=== PATIENT | female | born 1990 | race Caucasian/White ===

== ENCOUNTER → 2017-11-18 | Outpatient (CLI) | payer BC ==
[~2017-11-18] MED LIST: AA/A14DR7 OT; CIP500 PO; LOR5 PO; MED150I IM; PREN-127 PO
[2017-11-18 16:57] LABS: PLATELET COUNT, AUTOMATED 256 K/uL (150-450)
== END ==
LOC: LAB 12:43
PROVIDERS: ATTEND Student in an Organized Health Care Education/Training Program
DX: Z34.90 Encounter for supervision of normal pregnancy, unspecified, unspecified trimester (principal)
CPT/HCPCS: 36415; 81001; 85025; 86592; 86703; 86762; 86850; 86900; 86901; 87088; 87340

== ENCOUNTER → 2017-11-18 | Outpatient (CLI) | payer BC | LOC: LAB 15:30 | PROVIDERS: ATTEND Student in an Organized Health Care Education/Training Program | DX: Z02.9 Encounter for administrative examinations, unspecified (principal) ==

== ENCOUNTER → 2018-01-27 | Outpatient (CLI) | payer BC ==
[~2018-01-27] MED LIST changes: +FLU60VIA41 IM; +METR-1 PO
== END ==
LOC: LAB 16:03
PROVIDERS: ATTEND Student in an Organized Health Care Education/Training Program
DX: R35.0 Frequency of micturition (principal)
CPT/HCPCS: 87088

== ENCOUNTER → 2018-02-10 | Outpatient (CLI) | payer BC ==
[~2018-02-10] MED LIST changes: +FLUC150T40 PO; +METR500T54 PO
== END ==
LOC: LAB 08:37
PROVIDERS: ATTEND Student in an Organized Health Care Education/Training Program
DX: O26.899 Other specified pregnancy related conditions, unspecified trimester (principal)
CPT/HCPCS: 87210

== ENCOUNTER → 2018-02-24 | Outpatient (CLI) | payer BC ==
--- NOTE | 2018-02-24 17:28 | RADIOLOGY IMAGING REPORT ---
FACILITY: [facility] - [place] PATIENT NAME: Marietta Tipton : 1990 MR: [id number] V: [id number] EXAM DATE: ORDERING PHYSICIAN: BRYON CHAVEZ TECHNOLOGIST: Location: [facility] [place] Patient: Marietta Tipton : 1990 Visit/Account:[id number] Date of Sevice: 02/24/2018 [facility] OB ANATOMICAL SURVEY HISTORY: Anatomic survey COMPARISON: None. TECHNIQUE: Transabdominal imaging was performed for assessment of the fetus and maternal pelvic s tructures. Transvaginal imaging was not performed. FINDINGS: Intrauterine gestations: One. presentation: Breech presentation on final images. heart rate: 143 bpm. Amniotic fluid volume: Normal; RYLEY 18.02 cm; MVP 5.71 cm. Placenta: Posterior to the right. The distance between the distal placental tip and the cervical os is 3.1 cm. Uterus: Gravid, otherwise grossly unremarkable where visualized. Maternal adnexa/ovaries: Grossly unremarkable, ovaries not visualized. Cervix: Grossly long and closed. Gestational Parameters: BPD: 4.86 cm, 86th percentile HC: 18.06 cm, 77th percentile AC: 15.98 cm, 85th percentile FL: 3.17 cm, 48th percentile Average ultrasound age (AUA): 20 weeks/ four days Estimated age based on LMP: 19 weeks/ five days Estimated weight (EFW): 360 grams +/- 53 grams, 88th percentile Anatomic Survey: Intracranial structures, 4-chamber heart, stomach, kidneys, urinary bladder, spine, 3-vessel cord and cord insertion are unremarkable. Two upper and two lower extremities visualized. IMPRESSION: Single viable fetus in breech presentation with an estimated gestational age by measurements of 20 we eks and four days. Gestational age by last menstrual period is 19 weeks and five days. Estimated fe svetlana weight 360 g Report Dictated By: Zenia Sy MD at 02/24/2018 5:19 PM Report E-Signed By: Zenia Sy MD at 02/24/2018 5:25 PM WSN:[email or web address]
== END ==
LOC: RAD 10:01
PROVIDERS: ATTEND Student in an Organized Health Care Education/Training Program
DX: O32.1XX0 Maternal care for breech presentation, not applicable or unspecified (principal); Z3A.20 20 weeks gestation of pregnancy

== ENCOUNTER 2018-04-08 16:09 | Outpatient (CLI) | payer BC ==
[~2018-04-08] VITALS: Ht 170.2 cm; Wt 60.8 kg
[~2018-04-08 16:09] MED LIST changes: +METR500T15 PO; -METR500T54 PO
[2018-04-08 16:15] VITALS: BP 122/67; Ht 170.2 cm; Wt 60.8 kg
== END 2018-04-08 17:25 | disposition home or self-care (01) ==
LOC: OB 16:09 → L&D 16:09 → OB 16:09 → UNDOADMIN 16:09 → L&D 17:25 → UNDODISIN 17:25 → EDSTATUS 04-09 13:20
PROVIDERS: ATTEND Obstetrics & Gynecology
DX: O36.8121 Decreased fetal movements, second trimester, fetus 1 (principal); Z3A.25 25 weeks gestation of pregnancy
CPT/HCPCS: 59025; 99213

== ENCOUNTER → 2018-04-21 | Outpatient (CLI) | payer BC ==
[2018-04-08 16:15] VITALS: BMI 21.0
[~2018-04-21] MED LIST changes: +DIPH0.5D12 IM
[2018-04-21 16:57] LABS: PLATELET COUNT, AUTOMATED 229 K/uL (150-450)
== END ==
LOC: LAB 15:51
PROVIDERS: ATTEND Student in an Organized Health Care Education/Training Program
DX: Z34.92 Encounter for supervision of normal pregnancy, unspecified, second trimester (principal)
CPT/HCPCS: 36415; 82950; 85025

== ENCOUNTER → 2018-04-21 | Outpatient (CLI) | payer BC ==
[2018-04-08 16:15] VITALS: BMI 21.0
== END ==
LOC: LAB 15:44
PROVIDERS: ATTEND Student in an Organized Health Care Education/Training Program
DX: Z02.9 Encounter for administrative examinations, unspecified (principal)

== ENCOUNTER → 2018-04-24 | Outpatient (CLI) | payer BC ==
[2018-04-08 16:15] VITALS: BMI 21.0
== END ==
LOC: LAB 07:39
PROVIDERS: ATTEND Student in an Organized Health Care Education/Training Program
DX: O99.810 Abnormal glucose complicating pregnancy (principal)
CPT/HCPCS: 36415; 82951; 82952

== ENCOUNTER → 2018-05-01 | Outpatient (CLI) | payer BC ==
[2018-04-08 16:15] VITALS: BMI 21.0
== END ==
LOC: LAB 16:03
PROVIDERS: ATTEND Student in an Organized Health Care Education/Training Program
DX: N89.8 Other specified noninflammatory disorders of vagina (principal)
CPT/HCPCS: 87210

== ENCOUNTER → 2018-06-26 | Outpatient (CLI) | payer BC ==
[2018-04-08 16:15] VITALS: BMI 21.0
[~2018-06-26] MED LIST changes: +AZIT-17 PO
== END ==
LOC: LAB 15:26
PROVIDERS: ATTEND Student in an Organized Health Care Education/Training Program
DX: Z36.85 Encounter for antenatal screening for Streptococcus B (principal)
CPT/HCPCS: 87081

== ENCOUNTER 2018-07-14 18:00 | Inpatient (IN) | payer BC ==
[~2018-07-14] VITALS: Ht 170.2 cm; Wt 67.1 kg
[2018-07-14 18:07] VITALS: BP 126/67; Ht 170.2 cm; Wt 67.1 kg
[2018-07-14] MEDS ORDERED: OXYTOCIN 30 UNIT/D5LR 500 ML 500 ML IV PRN (18:14)
[2018-07-14] MEDS ORDERED: FAMOTIDINE(*) 20MG/50ML PREMIX 50 ML IVPB PRN (18:14)
[2018-07-14] MEDS ORDERED: ceFAZolin(*) 2GM/D5W 50ML 50 ML IVPB PRN (18:14)
[2018-07-14] MEDS ORDERED: LIDOCAINE 1% LOCAL 300 MG/30ML INJ PRN (18:15)
[2018-07-14] MEDS ORDERED: fentaNYL CITR 100 MCG/2 ML AMP IVP PRN (18:15)
[2018-07-14] MEDS ORDERED: METOCLOPRAMIDE 10 MG/2 ML SDV IVP PRN (18:15)
[2018-07-14] MEDS ORDERED: LIDOCAINE/SOD BICARB 8.4% SYR SC PRN (18:15)
[2018-07-14] MEDS ORDERED: BUPIVACAINE 0.25% MPF INJ EPI PRN (18:20)
[2018-07-14] MEDS ORDERED: FENTANYL/ROPIVACAINE 100 ML BAG EPI PRN (18:20)
[2018-07-14] MEDS ORDERED: fentaNYL CITR 100 MCG/2 ML AMP IT PRN (18:20)
[2018-07-14] MEDS ORDERED: LIDOCAINE/PF 2% 200MG/10ML AMP 200 MG/10 ML AMPUL EPI PRN (18:20)
[2018-07-14] MEDS ORDERED: LIDO/EPI 2% MPF 1:200,000 20ML EPI PRN (18:20)
[2018-07-14] MEDS ORDERED: BUPIVACAINE 0.5% INJ 30ML VIAL EPI PRN (18:20)
[2018-07-14 18:37] LABS: PLATELET COUNT, AUTOMATED 221 K/uL (150-450)
--- NOTE | 2018-07-14 18:49 | History & Physical ---
History of Present Illness Age of Patient: 27 : 1 Para or TPAL: 0 EDC per LMP: Jul 16, 2018 Estimated Gestational Age: 39.5 Chief Complaint Painful contractions. History of Present Illness Pt is a 27 y/o @ 39-5/7 wga who presents to L&D for a chief complaint of painful contractions. Pt was seen this morning for a routine OB appt and was 2 cm. Represented with a complaint of contractions and was 4 cm. Contractions started this morning after her first cervical exam. Denies any loss of amniotic fluid. No vaginal bleeding. Good movement. Desires no epidural at this time. History Patient's Blood Type: B Positive Rubella Status: Immune Group B Strep Screen: Negative Obstetrical History: Past Medical History: Non contributory Allergies: Coded Allergies: No Known Drug Allergies (Unverified , 11/18/17) Social History: Denies X 3. 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 =Lexa Family History: FH: diabetes mellitus Grandfather FH: hypertension Grandfather Med Rec Home Meds Reported Medications Vits W-Ca,Fe,Fa(<1MG) ( VITAMINS) Unknown Strength Tablet, PO DAILY, TAB 11/18/17 Review of Systems All Systems Reviewed/Normal: Yes, Except as Noted Constitutional: No Fever, No Weight Loss, No Weight Gain, No Chills, No Night Sweats, No Other Neurological: No Syncope, No Confusion, No Weakness, No Dizziness, No Slurred Speech, No Other Eyes: No Vision Change, No Loss of Vision, No Photophobia, No Other ENT: No Hearing Loss, No Sinus Congestion, No Sore Throat, No Ear Ache, No Tin nitus, No Other Cardiovascular: No Chest Pain, No Palpitations, No Orthostatic Hypotension, No Other Respiratory: No Shortness of Breath, No Cough, No Wheezing, No Other Gastrointestinal: No Nausea, No Vomiting, No Diarrhea, No Dysphagia, No Constipation, No Early Satiety, No Hematemesis, No Hematochezia, No Melena, No Abdominal Pain, No Other Genitourinary: No Dysuria, No Hematuria, No Urinary Incontinence, No Other Musculoskeletal: No Pain, No Sprain, No Strain, No Impaired Mobility, No Other Psychiatric: No Depression, No Anxiety, No Other Exam General Exam General Apperance: Alert/Awake/No Acute Distress Neuro: No Gross deficits Eyes: Normal Extraocular Movement & Vison, PERRLA Cardiovascular: Regular Rate and Rhythm Respiratory: No Respiratory Distress, Clear to Auscultation Abdomen: Gravid - Non-Tender Psychological: Alert & Oriented X3, Appropriate Mood & Affect Cervical Dialation: 7 Cervical Consistency: Soft Cervical Position: Anterior Station: -2 Presentation: Vertex Uterine Contractions(Q min): 3 Uterine Contraction Strength: Moderate UC Resting Tone: Soft Fetus Feeling Movement?: Yes Estimated Weight(grams): 3608 (By sono this AM) Heart Tones: 130 Heart Tone Variabilty: Moderate FHT Accelerations: 15X15 FHT Decelerations: None FHT Category: I Medical Decision Making Pre-Admit Course Medical Record Review: Yes VTE Prophylasis: Adult Deep Vein Thrombosis/Pulmonary: No Assessment and Plan KNUCKLER Assessment: Stable KNUCKLER Plan: Routine Labor Care Problems: (1) Active labor at term Assessment & Plan: Admit to L&D. Plan for . Pt declines amniotomy at this time. Desires no epidural if possible. (2) 39 weeks gestation of SCOTTBRYON BOSE Jul 14, 2018 18:49
[2018-07-14] MEDS: LR(*) 1000 ML BAG 1,000 ML IV SCH (19:30)
[2018-07-14] MEDS ORDERED: ONDANSETRON 4 MG/2 ML VIAL IVP PRN (19:45)
--- NOTE | 2018-07-14 22:01 | Labor Progress Note ---
Labor Subjective Progress Notes Subjective Reports large gush of fluid and increased pressure. Still having good movement. Feeling Movement?: Yes Vaginal Discharge/Fluid: Clear Fluid Labor Pain: Moderate Neurological: No Headache, No Other Eyes: No Visual Disturbances Labor Objective Vital Signs Vital Signs Date Time Temp Pulse Resp B/P (MAP) Pulse Ox O2 Delivery O2 Flow Rate FiO2 07/14/18 18:07 97.9 84 24 126/67 (86) 99 Room Air Vaginal Discharge/Fluid?: Clear Fluid Cervical Dialation: 9 Cervical Effacement (%): 100 Cervical Consistency: Soft Cervical Position: Anterior Station: +1 Presentation: Vertex Uterine Contractions(Q min): 5 Uterine Contraction Strength: Moderate Fetus Heart Tones: 140 Heart Tone Variabilty: Moderate FHT Accelerations: 15X15 FHT Decelerations: Variable FHT Category: II Other Result Diagram: 07/14/18 1821 Assessment and Plan ELEMENTARY PRINCIPAL Assessment: Stable ELEMENTARY PRINCIPAL Plan: Routine Labor Care Problems: (1) Active labor at term Assessment & Plan: Continue to monitor patient symptoms. Expect her to be complete and pushing in the next 1-2 hours. (2) 39 weeks gestation of SCOTTBRYON BOSE Jul 14, 2018 22:01
--- NOTE | 2018-07-15 02:12 | OB Delivery Note ---
Delivery Note Vaginal Delivery Type: Spont. Vaginal Delivery Delivery Date: Jul 15, 2018 Delivery Time: 01:21 Estimated Gestational Age(wks): 39.6 Length of Labor Stage I (hrs): 14 Length of Labor Stage II (hrs): 2 Labor Stage III (minutes): 4 Delivery Anesthesia: Local (repair only 20 cc 1%lidocaine) Sex: Male Weight (gms): 3215 (7#1oz) [place] Apgars: 1 Minute (8), 5 Minute (8) Repair Needed: 2nd Degree Estimated Blood Loss: 500 [employer] Driver in Attendence: BRYON Moore DO Jul 15, 2018 02:12
[2018-07-15] MEDS ORDERED: INFLUENZA VIRUS VAC 0.5ML SYR IM ONLY ONE (02:15)
[2018-07-15] MEDS ORDERED: LANOLIN OINT 7 GM TUBE TP PRN (02:15)
[2018-07-15] MEDS ORDERED: MEASLES,MUMP,RUBELLA VAC 0.5ML SC ONE (02:15)
[2018-07-15] MEDS ORDERED: HYDROCORTISONE 2.5% CR 30GM TB PR PRN (02:15)
[2018-07-15] MEDS ORDERED: BENZOCAINE 20% 60 ML BTL TP PRN (02:15)
[2018-07-15] MEDS ORDERED: GLYCERIN/WITCH HAZEL LEAF 1 PK TOP PRN (02:15)
[2018-07-15] MEDS ORDERED: APAP/HYDROCODONE 325/5 TAB PO PRN (02:15)
[2018-07-15] MEDS ORDERED: DIPHTH/TETANUS/ACEL. PERTUSSIS IM ONE (02:15)
[2018-07-15] MEDS ORDERED: MAGNESIUM HYDROXIDE* 30ML UDCP PO PRN (02:15)
[2018-07-15] MEDS: LR(*) 1000 ML BAG 1,000 ML IV SCH ×2 (04:14→14:14)
--- NOTE | 2018-07-15 05:48 | DELIVERY NOTE ---
DELIVERY DATE: July 15, 2018 SURGEON: Kyree Bhatt DO ANESTHESIA: 20 mL of 1% lidocaine for repair only. PREOPERATIVE DIAGNOSES 1. A 27-year-old 1, para 0, at 39-6/7 weeks' gestation. 2. Labor. POSTOPERATIVE DIAGNOSES 1. A 27-year-old 1, para 0, at 39-6/7 weeks' gestation. 2. Labor. 3. Delivered. PROCEDURE Spontaneous vaginal delivery with repair of second-degree midline laceration. FINDINGS Live-born male at 0121 of 07/15/2018 with Apgars of 8 and 8, weighing 7 pounds 1 ounce, 3215 g. Three-vessel cord. Intact placenta over a second- degree midline laceration. ESTIMATED BLOOD LOSS 500 mL. PATHOLOGY None. COMPLICATIONS None known. CONDITION Stable x2. Mother and infant to remain in the LDRP. COUNTS Correct for all needles, laps, sponges, and instruments. LABOR SUMMARY Patient is a 27-year-old 1, para 0, who presented to clinic at 39-5/7 weeks' gestation. She underwent cervical exam and was noted to be 2 cm, desired membrane stripping. She went home and reported contractions started shortly thereafter. Contractions increased in frequency and intensity. She was reevaluated approximately 3:30 and was noted to be 4-5 cm. She desired to return home and labor some more. She re-presented to Labor and Delivery at 6:30 and was noted to be 7 cm. Patient denied any loss of amniotic fluid. She did progress spontaneously to complete and did have spontaneous rupture of membranes and clear amniotic fluid. Patient was noted to be complete, and after approximately an hour and a half of pushing, the delivery team was called and assembled. DELIVERY SUMMARY Patient was placed in dorsal lithotomy position. She was prepped and draped in the usual sterile manner. Upon maternal pushing, the 's head delivered in a controlled manner, followed by the anterior shoulder with gentle downward motion, the posterior shoulder with gentle upward motion. The remainder of the infant's body delivered spontaneously. Mouth and nose were bulb-suctioned. The cord was clamped x2 and cut by the infant's father. The infant, secondary to some secondary apnea, was taken to the warmer to be vigorously cleaned and dried and attended to by the nursing staff. Next, a cord blood gas was obtained. The placenta delivered spontaneously with gentle cord traction. Oxytocin was infused to help with uterine tone. The uterus was massaged and deemed firm. Next, upon inspection of the perineum, vagina, cervix, and labia, it was noted that there was a second-degree midline laceration. This was repaired in the usual manner with a 3-0 Vicryl. Once the laceration was repaired, it was inspected and noted to be hemostatic. At this point, the patient was cleaned, the labor bed was reassembled, and the patient was allowed to irizarry with her baby at this time. ILYA
[2018-07-15 07:45] VITALS: BP 113/56
[2018-07-15] MEDS: DOCUSATE CALCIUM 240 MG CAP PO SCH ×2 (08:23→21:02)
[2018-07-15] MEDS ORDERED: IBUPROFEN 800 MG TAB PO SCH (09:00)
[2018-07-15] MEDS: ACETAMINOPHEN 325 MG TAB PO PRN ×3 (09:54→21:01)
[2018-07-15 10:30] VITALS: BP 112/56
[2018-07-15] MEDS: IBUPROFEN 800 MG TAB PO SCH ×2 (10:58→18:30)
--- NOTE | 2018-07-15 12:13 | OB/GYN Progress Note ---
OB Subjective Progress Notes Subjective Doing good this morning. Pain controlled with PO pain medications. Ambulatory in room only. with minimal difficulty. Tolerating regular diet. Bleeding appropriate. GI: NEG Nausea, NEG Vomiting, NEG Flatus, NEG Bowel Movement : Voiding Well, Vaginal Bleeding Pain: Mild, Comfortable, Tolerating PO Pain Meds Neurological: No Headache, No Other Eyes: No Visual Disturbances OB Objective Physical Exam Vital Signs Date Time Temp Pulse Resp B/P (MAP) Pulse Ox O2 Delivery O2 Flow Rate FiO2 07/15/18 10:30 99.4 74 16 112/56 (74) 92 Room Air Intake and Output 07/15/18 07:00 Intake Total 1500 ml Output Total 200 ml Balance 1300 ml IV Total 1500 ml Output Urine Total 200 ml # Voids 1 General Appearance: Alert/Awake/No Acute Distress Neurological: No Gross deficits Eyes: Normal Extraocular Movement & Vison, PERRLA Cardiovascular: Normal Rhythm & Peripheral Pulses Respiratory: No Respiratory Distress, Clear to Auscultation Abdomen: Fundus Firm : Normal Musculoskeletal: No Weakness/Pain Extremities: No Cyanosis,Clubbing or Edema Integumentary: Skin Intact without Lesions or Rash Psychological: Alert & Oriented X3, Appropriate Mood & Affect Result Diagram: 07/14/18 1821 Assessment and Plan BRIAR CUTTER Assessment: Stable BRIAR CUTTER Plan: Routine Post- Care Problems: (1) Active labor at term Status: Resolved Assessment & Plan: Patient is day #0 from a spontaneous vaginal delivery with second-degree midline laceration repair. Patient reports pain is controlled with by mouth pain medications which does include hydrocodone when necessary. Reports bleeding is minimal at this point. Still having some difficulty with breast-feeding. Ambulatory and room only. Will monitor patient until Saturday and possibly depending on patient's symptoms. (2) 39 weeks gestation of Status: Resolved BRYON CHAVEZ DO Jul 15, 2018 12:13
[2018-07-15 16:15] VITALS: BP 95/53
[2018-07-15 20:30] VITALS: BP 111/57
[2018-07-16] MEDS: LR(*) 1000 ML BAG 1,000 ML IV SCH (00:14)
[2018-07-16 02:20] VITALS: BP 104/65
[2018-07-16] MEDS: IBUPROFEN 800 MG TAB PO SCH (02:25)
[2018-07-16 07:20] VITALS: BP 113/66
[2018-07-16] MEDS: DOCUSATE CALCIUM 240 MG CAP PO SCH (08:51)
[2018-07-16] MEDS ORDERED: LOR5/325 PO (09:20)
[2018-07-16] MEDS ORDERED: IBUP800T37 PO (09:20)
--- NOTE | 2018-07-16 14:20 | OB/GYN Discharge Summary ---
Discharge Summary Reason for Hosp/Final Diag: (1) Active labor at term Status: Resolved Hospital Course & Plan: Patient presented in active labor she 1.5 hours. Patient delivered a liveborn male infant and had a second-degree laceration that was repaired accordingly. Patient made the hospital for 2 days and was discharged home day 2 after meeting ambulatory goals. (2) 39 weeks gestation of Status: Resolved Lates Vital Signs Vital Signs Date Time Temp Pulse Resp B/P (MAP) Pulse Ox O2 Delivery O2 Flow Rate FiO2 07/16/18 07:20 98.6 70 18 113/66 (82) Room Air 07/15/18 16:15 95 Weight (Pounds): 148 Result Diagram: 07/16/18618 Condition: Improved Discharge: Home Home Meds Active Scripts Ibuprofen (IBUPROFEN) 800 Mg Tablet, 800 MG PO Q8H@0300,1100,1900, #20 TAB 0 Ref ills Prov:BRYON CHAVEZ DO 07/16/18 Hydrocodone Bit/Acetaminophen (HYDROCODON-ACETAMINOPHEN 5-325) 1 Each Tablet, 1- 2 EACH PO Q6H PRN for PAIN, #20 TAB 0 Refills Max 8/day Prov:BRYON CHAVEZ DO 07/16/18 Reported Medications Vits W-Ca,Fe,Fa(<1MG) ( VITAMINS) Unknown Strength Tablet, PO DAILY, TAB 11/18/17 Follow up with: [facility] [phone], Dr. Chavez [phone] Follow up in: 6 wks PP or PO, 2 wks PO Discharge Diet: As Tolerates Discharge Activity: As Tolerates, Pelvic Rest BRYON CHAVEZ DO Jul 16, 2018 14:20
--- NOTE | 2018-07-16 14:23 | OB/GYN Progress Note ---
OB Subjective Progress Notes Subjective day #2. Denies any complaints. Pain controlled with by mouth pain medications. Bleeding appropriate. No issues with breast-feeding. Tolerating regular diet and ambulatory and room and all. GI: NEG Nausea, NEG Vomiting, NEG Flatus, NEG Bowel Movement : Voiding Well, Vaginal Bleeding, Moderate Pain: Mild Neurological: Headache Eyes: No Visual Disturbances OB Objective Physical Exam Vital Signs Date Time Temp Pulse Resp B/P (MAP) Pulse Ox O2 Delivery O2 Flow Rate FiO2 07/16/18 07:20 98.6 70 18 113/66 (82) Room Air 07/15/18 16:15 95 Intake and Output 07/16/18 07:00 Intake Total 240 ml Output Total 1300 ml Balance -1060 ml Intake Oral 240 ml Output Urine Total 1300 ml # Voids 4 General Appearance: Alert/Awake/No Acute Distress Neurological: No Gross deficits Eyes: Normal Extraocular Movement & Vison, PERRLA Cardiovascular: Normal Rhythm & Peripheral Pulses Respiratory: No Respiratory Distress, Clear to Auscultation Abdomen: Fundus Firm : Normal Musculoskeletal: No Weakness/Pain Extremities: No Cyanosis,Clubbing or Edema Integumentary: Skin Intact without Lesions or Rash Psychological: Alert & Oriented X3, Appropriate Mood & Affect Result Diagram: 07/16/18 0619 Assessment and Plan COLOR STRIPPER Assessment: Stable COLOR STRIPPER Plan: Routine Post- Care Problems: (1) Active labor at term Status: Resolved Assessment & Plan: Plan for discharge today follow-up in the office in 2 weeks. (2) 39 weeks gestation of Status: Resolved BRYON CHAVEZ DO Jul 16, 2018 14:22
== END 2018-07-16 13:20 | disposition home or self-care (01) | DRG 807 ==
LOC: OB 18:00 → OBSVTOIN 18:00
PROVIDERS: ADMIT Student in an Organized Health Care Education/Training Program; ATTEND Student in an Organized Health Care Education/Training Program
PROC: 10E0XZZ Delivery of Products of Conception, External Approach (ICD-10-PCS; principal; 2018-07-15)
PROC: 0KQM0ZZ Repair Perineum Muscle, Open Approach (ICD-10-PCS; 2018-07-15)
DX: O70.1 Second degree perineal laceration during delivery (principal); Z37.0 Single live birth; Z3A.39 39 weeks gestation of pregnancy
CPT/HCPCS: 36415; 85025; 85027; 86850; 86900; 86901; J2405; J2590; J7120

== ENCOUNTER → 2018-07-14 | Outpatient (CLI) | payer BC ==
[2018-04-08 16:15] VITALS: BMI 21.0
[~2018-07-14] MED LIST changes: -DIPH0.5D12 IM; +DIPH0.5S2 IM
--- NOTE | 2018-07-14 13:22 | RADIOLOGY IMAGING REPORT ---
FACILITY: [facility] - [place] PATIENT NAME: Marietta Tipton : 1990 MR: [id number] V: [id number] EXAM DATE: ORDERING PHYSICIAN: BRYON CHAVEZ TECHNOLOGIST: Location[place] [facility] [place] Patient: Marietta Tipton : 1990 Visit/Account:[id number] Date of Sevice: 07/14/2018 EXAMINATION: Ultrasound transabdominal OB > 14 weeks with anatomic evaluation HISTORY: Size less than dates COMPARISON: February 24, 2018 TECHNIQUE: Transabdominal imaging was performed for assessment of the fetus and maternal pelvic structures. T ransvaginal imaging was not performed. FINDINGS: Placenta: Posterior without previa. Uterus: Gravid, otherwise normal Cervix: Not evaluated Maternal Ovaries: Not visualized. Maternal and other adnexa findings: Not evaluated Intrauterine gestations: One. presentation: Vertex heart rate: Normal and regular at 138 bpm Amniotic fluid index: 23.5 cm Largest amniotic fluid pocket: 7.85 cm Gestational Parameters: BPD: 9.42 cm 38 weeks/ three days, 55% (by technologist notation the head measurements was not accura te due to position) HC: 34.67 cm 40 weeks/ two days, 56% AC: 34.75 cm 38 weeks/ five days, 46% FL: 7.69 cm 39 weeks/ three days, 51% Average ultrasound age (AUA): 39 weeks/two days, GOPI 07/19/2018 Estimated gestational age by GOPI: 39 weeks/five days, GOPI 07/16/2018 Estimated weight (EFW): 3640 grams +/- 532 grams EFW for GOPI: 56 percentile Anatomic Survey: Anatomic survey was not performed IMPRESSION: Single viable fetus in vertex presentation with an estimated gestational age by measurem ents of 39 weeks and two days. Estimated gestational age by LMP is 39 weeks and five days. The estimated weight is 3640 g equivalent to the 56th percentile Report Dictated By: Zenia Sy MD at 07/14/2018 1:14 PM Report E-Signed By: Zenia Sy MD at 07/14/2018 1:19 PM WSN:ALL
== END ==
LOC: RAD 08:45
PROVIDERS: ATTEND Student in an Organized Health Care Education/Training Program
DX: Z02.9 Encounter for administrative examinations, unspecified (principal)